=== PATIENT | female | born 1965 | race American Indian/Alaskan Native ===

== ENCOUNTER 2018-03-06 20:06 | Emergency (ER) | payer OTHER ==
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
[2018-03-06] MEDS ORDERED: MOTRIN PO ONE (23:14)
[2018-03-06 23:28] VITALS: BP 191/88
== END 2018-03-06 23:37 | disposition home or self-care (01) ==
LOC: ED 21:16
DX: M79.662 Pain in left lower leg (principal); M79.661 Pain in right lower leg; I10 Essential (primary) hypertension; Z98.51 Tubal ligation status; V49.49XA Driver injured in collision with other motor vehicles in traffic accident, initial encounter; Y93.89 Activity, other specified; Y92.89 Other specified places as the place of occurrence of the external cause; Y99.8 Other external cause status
CPT/HCPCS: 99283

== ENCOUNTER 2020-08-15 14:34 | Emergency (ER) | payer BC, OTHER ==
--- NOTE | 2020-08-15 17:31 | Emergency Department Report ---
HPI - General Chief Complaint: Extremity Injury, Lower Time Seen by Provider: 08/15/20 17:25 - HPI HPI: This is a 55-year-old female presents to the emergency department with complaint of pain to the right lower extremity that has been going on for "months." The pain is currently a 6 out of 10 in intensity and located posterior to the right knee, the right calf and right dumas. The patient denies any fall, trauma, injury, or known inciting event. She does feel that there is some swelling to the back of the right knee when compared to the left. She denies any skin color change, rash, lesions. She has not taken anything for symptoms prior to pre sentation. The patient went to see her PCP today regarding the symptoms but says that she found out they were "out of network" and therefore decided not to be seen, and came to the emergency department instead. She has a past medical history of hypertension but admits to medication noncompliance as she ran out of the medication. No recent travel or sick contacts at home. ED Past Medical Hx - Past Medical History Previous Medical History?: Yes Hx Hypertension: Yes - Surgical History Past Surgical History?: Yes Additional Surgical History: tubal ligation - Social History Smoking Status: Never Smoker Substance Use Type: None - Medications Home Medications: Home Medications Medication Instructions Recorded Confirmed Last Taken Type Cyclobenzaprine [Flexeril] 10 mg PO TID PRN #10 tablet 03/06/18 Unknown Rx Ibuprofen [Motrin] 800 mg PO Q8HR PRN #20 tablet 03/06/18 Unknown Rx amLODIPine 10 mg PO DAILY #30 tab 08/15/20 Unknown Rx ED Review of Systems ROS: Stated complaint: RT LEG/LOWER PAIN Other details as noted in HPI Comment: All other systems reviewed and negative Constitutional: denies: chills, fever Respiratory: denies: shortness of breath Cardiovascular: denies: chest pain Musculoskeletal: joint swelling, arthralgia, myalgia Skin: denies: rash, lesions Neurological: denies: numbness, paresthesias Physical Exam - Physical Exam Physical Exam: GENERAL: The patient is well-developed well-nourished. HENT: Normocephalic. Atraumatic. Patient has moist mucous membranes. EYES: Extraocular motions are intact. NECK: Supple. Trachea is midline. CHEST/LUNGS: Clear to auscultation. There is no respiratory distress noted. HEART/CARDIOVASCULAR: Regular. There is no tachycardia. SKIN: Skin is warm and dry. There is some mild nonpitting swelling to the posterior right knee. NEURO: The patient is awake, alert, and oriented. The patient is cooperative. The patient has no focal neurologic deficits. Normal speech. MUSCULOSKELETAL: There is tenderness to palpation to the right mid tib-fib, right calf, and right posterior knee. There is no limitation range of motion. ED Medical Decision Making - Radiology Data Radiology results: report reviewed VL venous duplex LE RT INDICATION / CLINICAL INFORMATION: RLE pain and swelling. TECHNIQUE: Duplex doppler imaging was performed using venous compression and other maneuvers. COMPARISON: None available. FINDINGS: No venous thrombosis is identified within the visualized extremity vasculature. ADDITIONAL FINDINGS: None. IMPRESSION: 1. No sonographic evidence for DVT in the visualized right lower extremity vasculature.. - Medical Decision Making This patient presents to the emergency department with complaint of right lower extremity pain with some swelling behind the right knee. There was no trauma, injury or obvious inciting event and therefore I did not feel that x-ray imaging was necessary at this time. She appears neurovascularly intact. She has full range of motion of the affected right lower extremity. A right lower extremity venous Doppler ultrasound was completed and it did not show any sonographic evidence for DVT. Patient appears safe for discharge home at this time. She has been given referrals for 2 different local orthopedic groups. Patient does present with some elevated blood pressure but is otherwise asymptomatic from her hypertension. She has been noncompliant with her blood pressure medication since October of this year. We discussed staying away from foods that are high in salt and caffeinated products, keeping a blood pressure log. The patient will also be started on amlodipine/Norvasc. She will call her insurance company for new primary care physicians that are within her network. She will return to the ER with any worsening of her symptoms or with any acute distress. Critical Care Time: No Critical care attestation.: If time is entered above; I have spent that time in minutes in the direct care of this critically ill patient, excluding procedure time. ED Disposition Clinical Impression: Right leg pain Hypertension Qualifiers: Hypertension type: essential hypertension Qualified Code(s): I10 - Essential (primary) hypertension Disposition: TO HOME OR SELFCARE Is pt being admited?: No Condition: Stable Instructions: Musculoskeletal Pain, Hypertension, Adult, Hypertension (ED) Additional Instructions: Please follow-up with an orthopedist in the next few days. I am giving you a referral for to local orthopedic groups, Dr. Bautista and [facility]. Please call your insurance company and ask for a list of local primary care physicians who are in network. Please try to follow-up with a primary care physician in the next 1 to 2 weeks. I am starting you on a blood pressure medication called Norvasc/amlodipine. This medication is taken once per day, usually in the morning. Try to stay away from foods that are high in salt and caffeinated products. Keep a blood pressure log. Return to the emergency department with any worsening of your symptoms, new or concerning symptoms not addressed during this current emergency department visit, or with any acute distress. Prescriptions: amLODIPine 10 mg PO DAILY #30 tab Referrals: [facility] [Primary Care Provider] - 3-5 Days MACHELLE BAUTISTA MD [Staff Physician] - 3-5 Days [facility] [Provider Group] - 3-5 Days Time of Disposition: 19:45
--- NOTE | 2020-08-15 19:18 | Vascular Lab Report ---
VL venous duplex LE RT INDICATION / CLINICAL INFORMATION: RLE pain and swelling. TECHNIQUE: Duplex doppler imaging was performed using venous compression and other maneuvers. COMPARISON: None available. FINDINGS: No venous thrombosis is identified within the visualized extremity vasculature. ADDITIONAL FINDINGS: None. IMPRESSION: 1. No sonographic evidence for DVT in the visualized right lower extremity vasculature.. Signer Name: Randal Heredia MD Signed: 08/15/2020 7:13 PM Workstation Name: [id number]
[2020-08-15 19:42] VITALS: BP 195/70
== END 2020-08-15 19:50 | disposition home or self-care (01) ==
LOC: ED 14:34
DX: M79.604 Pain in right leg (principal); I10 Essential (primary) hypertension; Z79.899 Other long term (current) drug therapy; Z98.51 Tubal ligation status